=== PATIENT | male | born 1970 | race African-American/Black ===

== ENCOUNTER 2017-03-10 19:53 | Emergency (ER) | payer OTHER ==
[~2017-03-10] VITALS: Ht 180.3 cm; Wt 83.0 kg
[2017-03-10 20:08] VITALS: BP 159/106
== END 2017-03-10 21:50 | disposition left against medical advice (07) ==
LOC: ER 20:08
DX: S09.90XA Unspecified injury of head, initial encounter (principal); Z53.21 Procedure and treatment not carried out due to patient leaving prior to being seen by health care provider; X58.XXXA Exposure to other specified factors, initial encounter; Y93.89 Activity, other specified; Y92.89 Other specified places as the place of occurrence of the external cause; Y99.8 Other external cause status